=== PATIENT | female | born 1950 | race Caucasian/White ===

== ENCOUNTER 2018-05-04 06:30 | Day surgery (SDC) | payer MEDICARE, OTHER, SELFPAY ==
[2018-04-25 15:00] VITALS: BMI 30.9
[2018-05-04] VITALS (9 sets, daily range): BP systolic 124–149; BP diastolic 44–88; PULSE 68–82; RESP 13–15; TEMP 36–36.6; O2SAT 95–98; BMI 31.4
--- NOTE | 2018-05-04 | PATH_ITS ---
[facility] Accession Number: [id number] . 01 Material submitted: . HEMORRHOIDS AT 12 O'CLOCK . 02 Diagnosis: Designated Hemorrhoids at 12 o'clock, Biopsy: Ulcerated anorectal mucosa with features of mucosal prolapse and vascular submucosal hemorrhoidal tissue. Negative for dysplasia and malignancy. MRV/05/06/2018 . 02 Electronically signed: . Crystal Ingram MD, Pathologist NPI- [id number] . 01 Gross description: . Received in formalin, labeled hemorrhoids at 6 o'clock, is a piece of moralez-white and red-brown bulging skin (1.9 x 1.7 x 1.0 cm). The resection margin is inked black. Tool [employer] serial sections submitted in cassette A1. Note: The site is confirmed to be 12 o'clock. ([id number]) /MRV . 02 Pathologist provided ICD-10: K64.9, K63.89 . 02 CPT . 640001 Performed at: 01 [facility] [address] [id number] MD Miguel Connolly MD Phone: [phone] Performed at: 02 [facility] [address] [place], [place] [id number] MD Crystal Ingram MD Phone: [phone]
[2018-05-04] MEDS: LACTATED RINGERS 1,000 ML 42 ML IV (07:37)
--- NOTE | 2018-05-04 08:22 | PM.HP.1 ---
History of Present Illness Date Patient Seen: 05/04/18 Time Patient Seen: 08:22 Chief complaint: [id number] Narrative: Wonderful 67 year lady who presents for hemorrhoidectomy. She denies any new problems or symptoms since I last saw her in the office. Patient History Medical History Anemia (Acute) Arthritis (Acute) Depression (Acute) Easy bruisability (Acute) GERD (gastroesophageal reflux disease) (Acute) History of blood clots (Acute) Migraines (Acute) Pain (Acute) Pneumonia (Acute) UTI (urinary tract infection) (Acute) H/O: hysterectomy (Resolved) Surgical History History of carpal tunnel release (Acute 01/18/14) History of colonoscopy (Acute) Hx of cholecystectomy (Acute ~1986) Hx of oophorectomy (Acute ~1979) S/P tonsillectomy and adenoidectomy (Acute ~1962) S/P trigger finger release (Acute 05/07/16) H/O bilateral breast reduction surgery (Resolved) History of tonsillectomy (Resolved) Family History Mother Hypertension Heart disease Stroke Father Hypertension Social History marital status: household members: spouse Smoking Status: Former smoker alcohol intake: current substance use type: does not use Family & Social History Family History Mother Hypertension Heart disease Stroke Father Hypertension Social History: household members spouse Tobacco & Substance use: Tobacco type cigarettes Smoking Status Former smoker alcohol intake current alcohol intake frequency 0-2 drinks per day Substance Use Type marijuana Meds Home Medications Medication Instructions Recorded Confirmed Type biotin 1 mg capsule 1 mg PO DAILY 03/17/18 05/04/18 History calcium-vitamin D3-vitamin K 500 1 tab PO BID tab 03/17/18 05/04/18 History mg-500 unit-40 mcg chewable tablet multivitamin tablet 1 tab PO BID tab 03/17/18 05/04/18 History omega-3 fatty acids 1,000 mg 1,000 mg PO DAILY 03/17/18 05/04/18 History capsule pantoprazole 40 mg tablet,delayed 40 mg PO DAILY 03/17/18 05/04/18 History release paroxetine 20 mg tablet 20 mg PO DAILY 03/17/18 05/04/18 History red yeast rice 600 mg capsule 1,200 mg PO DAILY 03/17/18 05/04/18 History Allergies Allergy/AdvReac Type Severity Reaction Status Date / Time Penicillins Allergy Mild RASH Verified 05/04/18 07:07 Review of Systems Review of Systems All systems reviewed & are unremarkable except as noted in HPI and below Exam Vital Signs (past 8 hours): - 05/04/18 07:19 Temperature 97.8 F Pulse Rate 70 Respiratory Rate 15 Blood Pressure 128/83 Pulse Oximetry 98 Oxygen Delivery Method Room Air Narrative Exam Narrative: Very pleasant lady in no obvious distress HEENT: Normocephalic and atraumatic, pupils equal round reactive to light accommodation with anicteric sclera Lungs: Clear to auscultation bilaterally Heart: Regular rate and rhythm without murmur rub or gallop Abdomen: Soft, nontender, active bowel sounds Rectal: Large prolapsing hemorrhoid with excoriation of the mucosa at 12:00 p.m.. Two areas of enlarged hemorrhoids at 5:00 a.m. and 7:00 a.m. respectively. Extremities: Warm well perfused Assessment & Plan Plan: Assessment/Plan Narrative: Very pleasant lady with a troublesome grade 4 hemorrhoid. We discussed risks benefits of hemorrhoidectomy and examination under anesthesia and the patient expressed desire to complete the procedure today.
--- NOTE | 2018-05-04 08:34 | SUR.OPER ---
Lithotomy on padded OR bed, head on pillow, arms secured on padded arm boards at <90 degrees abduction. Legs secured in padded yellow fins stirrups.
[2018-05-04] MEDS: LIDOCAINE 1% W/EPI INJ 20 ML INJ (08:37)
[2018-05-04] MEDS: BUPIVACAINE 0.5% (PF) VIAL 30 ML INJ (08:38)
[2018-05-04] MEDS: DIBUCAINE 1% OINT 28 GM 1 APPLIC TOP (08:44)
--- NOTE | 2018-05-04 09:03 | PM.OP.1 ---
Operative Date/Time/Diagnoses Date of procedure: 05/04/18 Time of procedure: 09:03 Pre-op diagnosis: Grade 4 internal hemorrhoids Post-op diagnosis: same Procedure & Clinicians Procedure: Examination under anesthesia with open hemorrhoidectomy at 12:00 p.m. and hemorrhoid banding at 4 and 7:00 a.m. Same procedure as scheduled: Yes Indications: Grade 4 hemorrhoids Surgeon: Carmela Holt Anesthesia Type: General (Dr. Franz) Operative Notes Findings: 1. Grade 4 hemorrhoid at 12:00 p.m. 2. Grade 2-3 internal hemorrhoids at 4 and 7:00 a.m. respectively Closure Type: primary Estimated Blood Loss (mL): 5 Procedure in detail: After obtaining informed consent, the patient was brought to the operating room and placed in the supine position on the operating table. Following successful induction of general endotracheal anesthesia, appropriate padding of all bony prominences, and placement of appropriate monitors, the patient's legs were placed in Khalif stirrups and the perineum and perianal region prepped and draped in the standard surgical fashion. A timeout was held per SCOAP protocol. Following infiltration with local anesthetic to create a field block, a retractor was placed in the anal canal. An internal/external hemorrhoid complex was seen at 12:00 prolapsing out into the anal canal and involving the perineal body with a large skin tag. A 2-0 chromic suture was placed at the apex of the seminal complex. The mucosa was opened and the underlying vein was carefully dissected from the external sphincter. The vein was liberated at the apex and passed from the table as a specimen. The remaining mucosa and anoderm was closed with a running locking chromic suture. After the grade 4 hemorrhoid had been removed, we were able to get a better evaluation of the remaining hemorrhoid groupings. At 5:00 a.m. and 7:00 a.m. respectively, there were 2 grade 2-3 groupings of internal hemorrhoids. We elected to band these. Each grouping was grasped and 2 bands deployed at the base of each segment. The anal canal was checked for hemostasis. It was irrigated with warm water. The anal canal itself was packed with Gelfoam and lidocaine ointment. All sponge, needle, and instrument counts were correct at the conclusion of the case. The patient was allowed to awaken from anesthesia without difficulty and taken to the post-anesthesia care unit in good condition. Complications: none Condition: stable Disposition: PACU Plan for aftercare: 1. Discharge home 2. Follow up with me in my office in 2 weeks
--- NOTE | 2018-05-04 09:47 | SUR.PHASEII ---
PT SITTING UP IN BED AND DRINKING JUICE. PT AT BEDSIDE. PT DENIES ANY PAIN/DISCOMFORT OR NAUSEA AT THIS TIME. REVIEWED DC INSTRUCTIONS WITH PT AND PT . PT PROVIDED WITH SITZ BATH AND WATER BOTTLE FOR CARE AT HOME. PT OBSERVED TO HAVE RED AREA ON LEFT INNER EYEBALL. PT STATES SHE IS ABLE TO SEE OUT OF BOTH EYES AND IS DENYING ANY PAIN AT THIS TIME IN HER EYES. WILL NOTIFY MD/ANESTHESIA. BED IN LOWEST POSITION AND CALL LIGHT GIVEN TO PT. PT APPEARS COMFORTABLE AT THIS TIME.
--- NOTE | 2018-05-04 10:46 | SUR.PHASEII ---
MD PIZARRO AND ANESTHESIA ALEXANDRA ASSESSED PT LEFT EYE. PER BOTH DOCTORS, OK FOR PT TO BE DISCHARGED HOME AT THIS TIME. ANESTHESIA ADVISED PT TO USE VISINE IN LEFT EYE IF ITS NEEDED. PT VOICED UNDERSTANDING. PT STATED NO PAIN IN EYE AND NO CHANGE IN VISION IN EYE.
== END 2018-05-04 10:54 | disposition home or self-care (01) ==
PROVIDERS: Family Provider Family Medicine; PCP Family Medicine; Visit Provider Surgery
PROC: (CPT 46260; principal; 2018-05-04 07:45)
DX: K64.3 Fourth degree hemorrhoids (principal); K64.2 Third degree hemorrhoids; D64.9 Anemia, unspecified; Z87.891 Personal history of nicotine dependence; K64.4 Residual hemorrhoidal skin tags
CPT/HCPCS: 46260; 88304; J1100; J2405; J2704; J3010

== ENCOUNTER → 2019-08-31 14:02 | Outpatient (CLI) | payer MEDICARE, OTHER, SELFPAY ==
--- NOTE | 2019-08-31 | DI.MG.S_ITS ---
BILATERAL DIGITAL SCREENING MAMMOGRAM 3D/2D WITH CAD: 08/31/2019 CLINICAL: Routine screening. Comparison is made to exams dated: 08/09/2018 mammogram, 06/04/2016 mammogram, and 05/10/2015 mammogram - [facility]. There are scattered fibroglandular elements in both breasts. Current study was also evaluated with a Computer Aided Detection (CAD) system. No significant masses, calcifications, or other findings are seen in either breast. There has been no significant interval change. IMPRESSION: NEGATIVE There is no mammographic evidence of malignancy. A 1 year screening mammogram is recommended. This exam was interpreted at Station ID: [id number]. NOTE: For mammograms, a report in lay terms will be sent to the patient. Approximately 15% of breast malignancies will not be visualized mammographically. In the management of a palpable breast mass, a negative mammogram must not discourage biopsy of a clinically suspicious lesion. Electronically Signed By: Humble kitchen/jemima:08/31/2019 14:38:44 letter sent: Normal Exam ACR BI-RADS Category 1: Negative 3341F
== END ==
PROVIDERS: Family Provider Family Medicine; PCP Physician Assistant; Referring Provider Physician Assistant; Visit Provider Physician Assistant
DX: Z12.31 Encounter for screening mammogram for malignant neoplasm of breast (principal)
CPT/HCPCS: 77063; 77067

== ENCOUNTER → 2019-09-04 13:55 | Outpatient (CLI) | payer MEDICARE, OTHER, SELFPAY | PROVIDERS: Family Provider Family Medicine; PCP Physician Assistant; Referring Provider Physician Assistant; Visit Provider Physician Assistant | DX: M85.88 Other specified disorders of bone density and structure, other site (principal); Z78.0 Asymptomatic menopausal state; Z90.722 Acquired absence of ovaries, bilateral; Z82.62 Family history of osteoporosis; Z87.891 Personal history of nicotine dependence | CPT/HCPCS: 77080 ==

== ENCOUNTER → 2020-08-31 11:01 | Outpatient (CLI) | payer MEDICARE, OTHER, SELFPAY ==
--- NOTE | 2020-08-31 11:02 | DI.MG.S_ITS ---
BILATERAL DIGITAL SCREENING MAMMOGRAM 3D/2D WITH CAD: 08/31/2020 CLINICAL: Routine screening. Comparison is made to exams dated: 08/31/2019 mammogram - [facility], 08/09/2018 mammogram, and 06/04/2016 mammogram - [facility]. The tissue of both breasts is predominantly fatty. Current study was also evaluated with a Computer Aided Detection (CAD) system. No significant masses, calcifications, or other findings are seen in either breast. There has been no significant interval change. IMPRESSION: NEGATIVE There is no mammographic evidence of malignancy. A 1 year screening mammogram is recommended. This exam was interpreted at Station ID: [id number]. NOTE: For mammograms, a report in lay terms will be sent to the patient. Approximately 15% of breast malignancies will not be visualized mammographically. In the management of a palpable breast mass, a negative mammogram must not discourage biopsy of a clinically suspicious lesion. Electronically Signed By: Carlos ibanez/jeimma:09/03/2020 08:03:23 letter sent: Normal Exam ACR BI-RADS Category 1: Negative 3341F
== END ==
PROVIDERS: Family Provider Family Medicine; PCP Physician Assistant; Referring Provider Physician Assistant; Visit Provider Physician Assistant
DX: Z12.31 Encounter for screening mammogram for malignant neoplasm of breast (principal)
CPT/HCPCS: 77063; 77067

== ENCOUNTER → 2020-10-31 11:08 | Outpatient (CLI) | payer MEDICARE, OTHER, SELFPAY | PROVIDERS: Family Provider Family Medicine; PCP Physician Assistant; Referring Provider Internal Medicine; Visit Provider Internal Medicine | DX: Z13.820 Encounter for screening for osteoporosis; Z78.0 Asymptomatic menopausal state; M85.88 Other specified disorders of bone density and structure, other site; Z90.722 Acquired absence of ovaries, bilateral; Z87.891 Personal history of nicotine dependence; Z82.62 Family history of osteoporosis | CPT/HCPCS: 77080 ==

== ENCOUNTER → 2021-09-02 10:23 | Outpatient (CLI) | payer MEDICARE, OTHER, SELFPAY ==
--- NOTE | 2021-09-02 | DI.MG.S_ITS ---
BILATERAL DIGITAL SCREENING MAMMOGRAM 3D/2D WITH CAD: 09/02/2021 CLINICAL: Routine screening. Family history of breast cancer. Comparison is made to exams dated: 08/31/2020 mammogram, 08/31/2019 mammogram - [facility], and 08/09/2018 mammogram - [facility]. The tissue of both breasts is predominantly fatty. Current study was also evaluated with a Computer Aided Detection (CAD) system. No significant masses, calcifications, or other findings are seen in either breast. There has been no significant interval change. IMPRESSION: NEGATIVE There is no mammographic evidence of malignancy. A 1 year screening mammogram is recommended. This exam was interpreted at Station ID: [id number]. NOTE: For mammograms, a report in lay terms will be sent to the patient. Approximately 15% of breast malignancies will not be visualized mammographically. In the management of a palpable breast mass, a negative mammogram must not discourage biopsy of a clinically suspicious lesion. Electronically Signed By: Sergio allen/jemima:09/02/2021 10:48:18 letter sent: Normal Exam ACR BI-RADS Category 1: Negative 3341F
== END ==
PROVIDERS: Family Provider Family Medicine; PCP Physician Assistant; Referring Provider Physician Assistant; Visit Provider Physician Assistant
DX: Z12.31 Encounter for screening mammogram for malignant neoplasm of breast (principal); Z80.3 Family history of malignant neoplasm of breast
CPT/HCPCS: 77063; 77067

== ENCOUNTER → 2022-09-08 15:13 | Outpatient (CLI) | payer MEDICARE, OTHER, SELFPAY ==
--- NOTE | 2022-09-08 15:14 | DI.MG.S_ITS ---
BILATERAL DIGITAL SCREENING MAMMOGRAM 3D/2D WITH CAD: 09/08/2022 CLINICAL: Routine screening. Family history of breast cancer. Comparison is made to exams dated: 09/02/2021 mammogram, 08/31/2020 mammogram, and 08/31/2019 mammogram - [facility]. Both breasts are almost entirely fatty (category a/<25% glandular tissue). Current study was also evaluated with a Computer Aided Detection (CAD) system. No significant masses, calcifications, or other findings are seen in either breast. There has been no significant interval change. IMPRESSION: NEGATIVE There is no mammographic evidence of malignancy. A 1 year screening mammogram is recommended. Based on the Tyrer Cuzick model (a risk assessment model) the patient's lifetime risk is 6.7% and her 10 year risk is 4.3%. According to the ACR, ACS, and NCCN guidelines, an annual breast MRI exam along with mammogram is recommended if the patient's lifetime risk is 20% or greater. This exam was interpreted at Station ID: [id number]. NOTE: For mammograms, a report in lay terms will be sent to the patient. Approximately 15% of breast malignancies will not be visualized mammographically. In the management of a palpable breast mass, a negative mammogram must not discourage biopsy of a clinically suspicious lesion. Electronically Signed By: Art tapia/jemima:09/09/2022 07:58:18 letter sent: Normal Exam ACR BI-RADS Category 1: Negative 3341F
== END ==
PROVIDERS: Family Provider Family Medicine; PCP Family Medicine; Referring Provider Family Medicine; Visit Provider Family Medicine
DX: Z12.31 Encounter for screening mammogram for malignant neoplasm of breast (principal); Z80.3 Family history of malignant neoplasm of breast
CPT/HCPCS: 77063; 77067

== ENCOUNTER → 2022-12-15 08:03 | Outpatient (CLI) | payer MEDICARE, OTHER, SELFPAY ==
[2022-12-15 09:09] LABS: Alanine Aminotransferase 29 IU/L (<35); Albumin 4.3 g/dL (3.5-5.0); Albumin Globulin Ratio 1.6 (1.0-2.8); Alkaline Phosphatase 60 U/L (38-126); Aspartate Aminotransferase 31 IU/L (14-36); BUN Creatinine Ratio 18.8 (6-22); Bilirubin Total 0.2 mg/dL (0.2-1.3); Blood Urea Nitrogen 15 mg/dL (7-17); Carbon Dioxide 29 mmol/L (22-32); Chloride 103 mmol/L (98-107); Cholesterol 226 mg/dL (140-199); Estimated Glomerular Filt Rate > 60 mL/min (>60); Globulin 2.7 g/dL (1.7-4.1); Glucose 91 mg/dL (80-110); HDL Cholesterol 91 mg/dL (40-60); HEMOLYSIS < 15 (0-50); LDL Cholesterol Calculated 109 mg/dL (<100); Potassium 4.5 mmol/L (3.4-5.1); Sodium 140 mmol/L (137-145); Triglycerides 130 mg/dL (35-150)
[2022-12-15 09:50] LABS: Hep C Virus Ab w/Reflex Quant NEGATIVE s/c (NEGATIVE)
== END ==
PROVIDERS: Family Provider Family Medicine; PCP Family Medicine; Referring Provider Family Medicine; Visit Provider Family Medicine
DX: I10 Essential (primary) hypertension (principal); Z00.00 Encounter for general adult medical examination without abnormal findings; Z11.59 Encounter for screening for other viral diseases
CPT/HCPCS: 36415; 80053; 80061; 86803

== ENCOUNTER → 2023-01-04 14:29 | Outpatient (CLI) | payer MEDICARE, OTHER, SELFPAY ==
[2023-01-04 16:00] LABS: Add Manual Diff / Slide Review NO; Basophils Absolute Auto 100 /uL (0-100); Basophils Percent Auto 0.8 % (0-2); Eosinophils Absolute Auto 200 /uL (0-450); Eosinophils Percent Auto 3.2 % (2-4); Hematocrit 34.5 % (36-46); Hemoglobin 11.1 g/dL (12.0-16.0); Lymphocytes Absolute Auto 1900 /uL (1100-4500); Lymphocytes Percent Auto 26.1 % (25-40); Mean Corpuscular HGB Conc 32.1 % (30-36); Mean Corpuscular Hemoglobin 26.7 PG (26-34); Mean Corpuscular Volume 83.2 fL (80-100); Monocytes Absolute Auto 600 /uL (0-900); Monocytes Percent Auto 7.9 % (3-14); Neutrophils Absolute Auto 4500 /uL (1500-7000); Platelet Count 256 X10^3/uL (150-400); Red Blood Cell Count 4.14 X10^6/uL (4.0-5.2); Red Cell Distribution Width 21.1 % (11.6-14.8); White Blood Cell Count 7.2 X10^3/uL (4.5-11.0)
[2023-01-04 16:13] LABS: Anisocytosis 1+
[2023-01-05 10:36] LABS: Fecal Immunochemical Test Negative (Negative)
== END ==
PROVIDERS: Family Provider Family Medicine; PCP Family Medicine; Referring Provider Family Medicine; Visit Provider Family Medicine
DX: D64.9 Anemia, unspecified (principal); Z12.11 Encounter for screening for malignant neoplasm of colon
CPT/HCPCS: 36415; 82274; 85025

== ENCOUNTER 2023-03-30 11:09 | Emergency (ER) | payer MEDICARE, OTHER, SELFPAY ==
[2023-03-30] VITALS (9 sets, daily range): BP systolic 118–151; BP diastolic 73–95; PULSE 86–109; RESP 10–28; TEMP 36.9–37; O2SAT 95–100; BMI 30.7
--- NOTE | 2023-03-30 11:21 | DI.RAD.S_ITS ---
PROCEDURE: XR CHEST 1V INDICATIONS: chest pain TECHNIQUE: One view of the chest was acquired. COMPARISON: [facility], , CHEST 2 VIEW, 05/21/2014, 9:13. FINDINGS: Surgical changes and devices: None. Lungs and pleura: Lungs are clear. No pleural effusions or pneumothorax. Mediastinum: Mediastinal contours appear normal. Heart size is normal. Bones and chest wall: No suspicious bony lesions. Overlying soft tissues appear unremarkable. IMPRESSION: No acute cardiopulmonary abnormality is seen. Dictated by: Neetu Dougherty M.D. on 03/30/2023 at 12:14 Approved by: Neetu Dougherty M.D. on 03/30/2023 at 12:14
[2023-03-30 11:48] LABS: INR 0.9 (0.9-1.3); Prothrombin Time 10.7 SECONDS (9.4-12.5)
[2023-03-30 11:51] LABS: PTT Partial Thromboplastin Tim 27 SECONDS (25.1-36.5)
[2023-03-30 11:52] LABS: Add Manual Diff / Slide Review NO; Basophils Absolute Auto 100 /uL (0-100); Basophils Percent Auto 1.2 % (0-2); Eosinophils Absolute Auto 300 /uL (0-450); Eosinophils Percent Auto 4.3 % (2-4); Hemoglobin 11.6 g/dL (12.0-16.0); Lymphocytes Absolute Auto 1800 /uL (1100-4500); Mean Corpuscular HGB Conc 33.1 % (30-36); Mean Corpuscular Volume 90.6 fL (80-100); Monocytes Absolute Auto 600 /uL (0-900); Neutrophils Absolute Auto 3100 /uL (1500-7000); Neutrophils Percent Auto 53.5 % (50-75); Platelet Count 257 X10^3/uL (150-400); Red Blood Cell Count 3.87 X10^6/uL (4.0-5.2); Red Cell Distribution Width 19.2 % (11.6-14.8); White Blood Cell Count 5.8 X10^3/uL (4.5-11.0)
[2023-03-30 12:00] LABS: Alanine Aminotransferase 31 IU/L (<35); Albumin 4.3 g/dL (3.5-5.0); Albumin Globulin Ratio 1.4 (1.0-2.8); Alkaline Phosphatase 61 U/L (38-126); Aspartate Aminotransferase 35 IU/L (14-36); BUN Creatinine Ratio 19.2 (6-22); Bilirubin Total 0.8 mg/dL (0.2-1.3); Blood Urea Nitrogen 15 mg/dL (7-17); Calcium 9.6 mg/dL (8.4-10.2); Carbon Dioxide 28 mmol/L (22-32); Chloride 104 mmol/L (98-107); Creatine Kinase 73 U/L (30-135); Estimated Glomerular Filt Rate > 60 mL/min (>60); Glucose 89 mg/dL (80-110); HEMOLYSIS < 15 (0-50); Lipase 128 U/L (23-300); Sodium 139 mmol/L (137-145); Total Protein 7.3 g/dL (6.3-8.2)
[2023-03-30 12:09] LABS: Troponin I < 0.012 ng/mL (0.01-0.034)
[2023-03-30] MEDS: ASPIRIN 81 MG CHEW TAB 324 MG PO (12:16)
--- NOTE | 2023-03-30 14:47 | ED.CHESTPAIN ---
HPI - Chest Pain General Chief Complaint: Chest Pain Stated Complaint: L side chest pain Time Seen by Provider: 03/30/23 14:46 Source: patient Mode of arrival: Ambulatory Limitations: no limitations History of Present Illness HPI narrative: Patient is a 72-year-old female with history of hypertension presenting today with left-sided chest pain. She reports that she her COVID and flu vaccine 6 days ago 2 days later she kind of slipped but did not really fall or land on her chest. Since then she has had left anterior chest pain. She says it is progressively getting worse. It hurts every time she moves breathes coughs or sneezes. She is taken some Tylenol ibuprofen for it without significant relief. She denies any shortness of breaths. Related Data Home Medications Medication Instructions Recorded Confirmed biotin 1 mg capsule 1 mg PO DAILY 03/17/18 12/14/22 calcium-vitamin D3-vitamin K 500 1 tab PO BID 03/17/18 12/14/22 mg-500 unit-40 mcg chewable tablet (Viactiv) omega-3 fatty acids 1,000 mg 1,000 mg PO DAILY 03/17/18 12/14/22 capsule (Fish Oil Concentrate) red yeast rice 600 mg capsule 1,200 mg PO DAILY 03/17/18 12/14/22 cetirizine 10 mg capsule (Zyrtec) 10 mg PO DAILY PRN 04/22/22 12/14/22 clobetasol 0.05 % topical cream 1 applic topical DAILY 04/22/22 12/14/22 fluticasone propionate 50 1 spray intranasal DAILY 04/22/22 12/14/22 mcg/actuation nasal spray,suspension (Flonase Allergy Relief) psyllium 1 tbsp PO DAILY 04/22/22 12/14/22 vit C 250 mg-vit E 200 unit-zinc cap PO 04/22/22 12/14/22 ox 12.5 [id number] capsule (ICaps AREDS2) Previous Rx's Medication Instructions Recorded losartan 25 mg tablet 25 mg PO DAILY #90 tabs 12/14/22 paroxetine HCl 20 mg tablet (Paxil) 20 mg PO DAILY #90 tabs 12/14/22 pantoprazole 40 mg tablet,delayed 40 mg PO DAILY #90 tabs 02/01/23 release hydrocodone 5 mg-acetaminophen 325 1 tab PO Q6H PRN pain #10 tabs 03/30/23 mg tablet Allergies Allergy/AdvReac Type Severity Reaction Status Date / Time ciprofloxacin [From Cipro] Allergy Mild Urticaria Verified 03/30/23 11:10 Penicillins Allergy Mild RASH Verified 03/30/23 11:10 Patient History Medical History Encounter for initial annual wellness visit (AWV) in Medicare patient Benign essential HTN Rosacea Allergies PTSD (post-traumatic stress disorder) Anxiety Osteopenia Foot pain Chronic back pain Carpal tunnel syndrome Ankle pain Measles Chicken pox Vertigo Cataracts, bilateral Ovarian cyst (~1979) Fibroids (~2011) Hemorrhoid (~2018) Colitis (~1974) Easy bruisability Anemia Depression Migraines UTI (urinary tract infection) GERD (gastroesophageal reflux disease) (~1974) Pain Arthritis Pneumonia History of blood clots Surgical History Anesthesia History of hemorrhoidectomy (~04/2018) History of colonoscopy Hx of oophorectomy (~1979) S/P trigger finger release (05/07/16) History of carpal tunnel release (01/18/14) Hx of cholecystectomy (~1986) S/P tonsillectomy and adenoidectomy (~1962) History of tonsillectomy (~1962) H/O bilateral breast reduction surgery (~2004) H/O: hysterectomy (~11/2012) Family History Mother Hypertension Heart disease Stroke Congestive heart failure Osteoporosis Father Hypertension Cancer Brother Hyperlipidemia Brother Hyperlipidemia Sister Hyperlipidemia Stroke Sister Stroke Social History marital status: household members: spouse Smoking Status: Former smoker alcohol intake: current substance use type: does not use Smoking Status: Former smoker alcohol intake frequency: 0-2 drinks per day Substance Use Type: marijuana Exam Initial Vital Signs Initial Vital Signs: Vital Signs Temperature 98.4 F 03/30/23 11:12 Pulse Rate 86 03/30/23 11:12 Respiratory Rate 18 03/30/23 11:12 Blood Pressure 135/73 03/30/23 11:12 Pulse Oximetry 100 03/30/23 11:12 Oxygen Delivery Method Room Air 03/30/23 11:12 GENERAL: Alert pleasant well-appearing 72 year female and in no acute distress. HEENT: Head atraumatic,EOMI, pupils reactive, face symmetric, moist mucous membranes CARDIOVASCULAR: Regular rate and rhythm without murmurs, rubs or gallops. Left anterior chest reproducible to palpation. No contusion erythema or sign of trauma RESPIRATORY: Breath sounds equal bilaterally, no wheezes rales or rhonchi. ABDOMEN: Soft, nontender. Normoactive bowel sounds all 4 quadrants. No guarding or rebound.ss EXTREMITIES: Normal range of motion, no clubbing or edema. Neurovascularly intact NEUROLOGICAL: Alert and oriented x4.Normal gait and speech. Cranial nerves II through XII grossly intact. SKIN: Warm, dry, no laceration, no petechiae, no rashes or lesions. Scores HEART Score Heart Score history: Slightly Suspicious Heart Score EKG: Normal Heart Score Age: > or = 65 years old Heart Score risk factors: 1-2 risk factors Heart Score troponin: < or = to normal limit Heart Score Total: 3 Course Orders Ordered: Discontinued Medications Aspirin (Aspirin 81 Mg Chew Tab) 324 mg PO NOW ONE Stop: 03/30/23 11:22 Last Admin: 03/30/23 12:16 Dose: 324 mg Documented By: PAOLA Ketorolac Tromethamine (Ketorolac 30 Mg/Ml Vial) 15 mg IV NOW ONE Stop: 03/30/23 15:18 Last Admin: 03/30/23 15:23 Dose: 15 mg Documented By: KB Vital Signs Vital signs: Vital Signs - 8 hr 03/30/23 11:12 03/30/23 12:19 03/30/23 12:20 Temperature 98.4 F Pulse Rate 86 108 H Respiratory Rate 18 26 H Blood Pressure 135/73 136/82 Pulse Oximetry 100 99 Oxygen Delivery Method Room Air 03/30/23 12:20 03/30/23 12:30 03/30/23 12:30 Temperature Pulse Rate 109 H 104 H Respiratory Rate 28 H 10 L Blood Pressure 118/81 Pulse Oximetry 99 97 Oxygen Delivery Method 03/30/23 13:00 03/30/23 13:00 03/30/23 13:30 Temperature Pulse Rate 104 H Respiratory Rate 23 Blood Pressure 142/87 H 139/91 H Pulse Oximetry 97 Oxygen Delivery Method 03/30/23 13:30 03/30/23 14:00 03/30/23 14:00 Temperature Pulse Rate 103 H 101 H Respiratory Rate 11 L 23 Blood Pressure 133/89 Pulse Oximetry 97 97 Oxygen Delivery Method Room Air Room Air MDM - Chest Pain Lab Data 03/30/23 11:25 03/30/23 11:25 Labs: Lab Results 03/30/23 03/30/23 Range/Units 11:25 14:40 WBC 5.8 (4.5-11.0) X10^3/uL RBC 3.87 L (4.0-5.2) X10^6/uL Hgb 11.6 L (12.0-16.0) g/dL Hct 35.0 L (36-46) % MCV 90.6 (80-100) fL MCH 30.0 (26-34) PG MCHC 33.1 (30-36) % RDW 19.2 H (11.6-14.8) % Plt Count 257 (150-400) X10^3/uL Neut % (Auto) 53.5 (50-75) % Lymph % (Auto) 31.0 (25-40) % [place] % (Auto) 10.0 (3-14) % Eos % (Auto) 4.3 H (2-4) % Baso % (Auto) 1.2 (0-2) % Neut # (Auto) 3100 (1165-5019) /uL Lymph # (Auto) 1800 (2296-4578) /uL [place] # (Auto) 600 (0-900) /uL Eos # (Auto) 300 (0-450) /uL Baso # (Auto) 100 (0-100) /uL PT 10.7 (9.4-12.5) SECONDS INR 0.9 (0.9-1.3) APTT 27 (25.1-36.5) SECONDS Sodium 139 (137-145) mmol/L Potassium 4.0 (3.4-5.1) mmol/L Chloride 104 (98-107) mmol/L Carbon Dioxide 28 (22-32) mmol/L BUN 15 (7-17) mg/dL Creatinine 0.78 (0.52-1.04) mg/dL Estimated GFR > 60 (>60) mL/min BUN/Creatinine Ratio 19.2 (6-22) Glucose 89 (80-110) mg/dL Calcium 9.6 (8.4-10.2) mg/dL Magnesium 2.0 (1.6-2.3) mg/dL Total Bilirubin 0.8 (0.2-1.3) mg/dL AST 35 (14-36) IU/L ALT 31 (<35) IU/L Alkaline Phosphatase 61 (38-126) U/L Total Creatine Kinase 73 (30-135) U/L Troponin I < 0.012 < 0.012 (0.01-0.034) ng/mL Total Protein 7.3 (6.3-8.2) g/dL Albumin 4.3 (3.5-5.0) g/dL Globulin 3.0 (1.7-4.1) g/dL Albumin/Globulin Ratio 1.4 (1.0-2.8) Lipase 128 (23-300) U/L Urine Dip Bedside Urine Glucose Negative Bedside Urine Bilirubin - Negative Bedside Urine Ketone - Negative Urine Specific [place] 1.010 Bedside Urine Occult Blood - Negative Bedside Urine pH 6.0 Bedside Urine Protein - Negative Bedside Urine Urobilinogen - Negative Bedside Urine Nitrite - Negative Bedside Urine Leukocytes - Negative Esterase Imaging Data Chest x-ray: Radiologist's Impression: PROCEDURE: XR CHEST 1V INDICATIONS: chest pain TECHNIQUE: One view of the chest was acquired. COMPARISON: [facility], , CHEST 2 VIEW, 05/21/2014, 9:13. FINDINGS: Surgical changes and devices: None. Lungs and pleura: Lungs are clear. No pleural effusions or pneumothorax. Mediastinum: Mediastinal contours appear normal. Heart size is normal. Bones and chest wall: No suspicious bony lesions. Overlying soft tissues appear unremarkable. IMPRESSION: No acute cardiopulmonary abnormality is seen. Dictated by: Neetu Dougherty M.D. on 03/30/2023 at 12:14 Approved by: Neetu Dougherty M.D. on 03/30/2023 at 12:14 ECG Data Interpretation: Normal sinus rhythm rate 87 ND interval 138 QRS [address] changes inversions MDM Narrative Medical decision making narrative: Patient is a 72-year-old female presents today with left-sided chest pain. It started after a small slip but she did not fall. It is definitely reproducible with palpation worse with any type of movement and constant for the last 5 days. EKG has been reviewed without any ischemic changes Chest x-ray has been reviewed without any abnormality Blood work has been reviewed with 2- troponins and no clinical significant abnormalities Patient chest pain is likely a costochondritis musculoskeletal type pain. Unlikely to be acute coronary syndrome. Heart score is 3 Discharge Plan Departure Patient Disposition: Home Clinical Impression: Acute costochondritis Instructions: Costochondritis Activity Restrictions/Additional Instructions: *You have been diagnosed with costochondritis *What to do: At this time this is likely sprained rib. Supportive care only. May try ice or heat. This will take time it can take up to 4 weeks to heal. *Continue to take medications as directed --> [facility] Motrin 600 mg every 8 hours 1-2 weeks [place] 1 tablet every 6 hours at nighttime if needed to help with sleep or severe pain *Follow up with your primary care provider in 2-3 days or call [phone] *Return to ER if you should have increasing pain shortness of breath numbness tingling weakness or any new, worsening or concerning symptoms CONTROLLED SUBSTANCE DISCHARGE (Narcotoic/benzodiazepine/Flexeril/Phenergan) 1. You have been prescribed narcotic medications, it does have acetaminophen/Tylenol/paracetamol in it, DO NOT TAKE MORE THAN 4,00mg in 24 hours of Tylenol. TRAMADOL DOES NOT CONTAIN TYLENOL 2. Please understand that we cannot provide further refills of narcotics, benzodiazepines or controlled substances through the ED and her pain management will need to be through your provider. 3. While on these medications you cannot drive or operate heavy machinery. 4. You cannot sign legal documents or perform any duties such as this. 5. As long as you're taking opiate pain medications he should also be taking a stool softener such as Colace, Dulcolax, MiraLAX or prune juice, to help avoid constipation. Prescriptions: New hydrocodone-acetaminophen 5-325 mg tablet 1 tab PO Q6H PRN (Reason: pain) Qty: 10 0RF No Action pantoprazole 40 mg tablet,delayed release (DR/EC) 40 mg PO DAILY Qty: 90 3RF Zyrtec 10 mg capsule 10 mg PO DAILY PRN ICaps AREDS2 250 mg-200 unit -12.5 mg-1 mg capsule PO fluticasone propionate [Flonase Allergy Relief] 50 mcg/actuation spray,suspension 1 spray intranasal DAILY Rx Instructions: administer into each nostril clobetasol 0.05 % cream 1 applic topical DAILY psyllium Powder 1 tbsp PO DAILY Rx Instructions: mix into at least 8 oz of water or juice before administering losartan 25 mg tablet 25 mg PO DAILY Qty: 90 3RF paroxetine HCl [Paxil] 20 mg tablet 20 mg PO DAILY Qty: 90 3RF calcium-vitamin D3-vitamin K [Viactiv] 500-500-40 mg-unit-mcg tablet,chewable 1 tab PO BID omega-3 fatty acids [Fish Oil Concentrate] 1,000 mg capsule 1,000 mg PO DAILY red yeast rice 600 mg capsule 1,200 mg PO DAILY biotin 1 mg capsule 1 mg PO DAILY Referrals: Miracle Turner DO [Primary Care Provider] - Stand Alone Forms: Patient Portal/API
[2023-03-30 15:10] LABS: Troponin I < 0.012 ng/mL (0.01-0.034)
[2023-03-30] MEDS: KETOROLAC 30 MG/ML VIAL 15 MG IV (15:23)
== END 2023-03-30 15:56 | disposition home or self-care (01) ==
PROVIDERS: Emergency Provider Emergency Medicine; Family Provider Family Medicine; PCP Family Medicine
DX: M94.0 Chondrocostal junction syndrome [Tietze] (principal); R07.9 Chest pain, unspecified
CPT/HCPCS: 36415; 71045; 80053; 81003; 82550; 83690; 83735; 84484; 85025; 85610; 85730; 93005; 96374; 99284; J1885

== ENCOUNTER → 2023-04-15 10:38 | Outpatient (CLI) | payer MEDICARE, OTHER, SELFPAY ==
--- NOTE | 2019-04-15 10:59 | DI.DEXA.S_ITS ---
Bone Density Report Name: MOIRA BAEZA Age: 72 Sex: Female Ethnicity: White Date of : 1950 Indication: osteopenia; Referring Provider: BETTIE LOWE Study: Bone densitometry was performed. Exam Date: April 15, 2023 Accession number: [id number] Bone Density: Region BMD T-score Z-score Classification AP Spine(L1-L4) 0.833 -1.9 0.2 Osteopenia Femoral Neck (Left) 0.765 -0.8 1.1 Normal Total Hip (Left) 0.876 -0.5 1.0 Normal Femoral Neck (Right) 0.766 -0.8 1.1 Normal Total Hip (Right) 0.860 -0.7 0.9 Normal Total Hip Mean 0.868 -0.6 1.0 Normal World Health Organization criteria for BMD impression classify patients as: Normal (T-score at or above -1.0), Osteopenia (T-score between -1.0 and -2.5), or Osteoporosis (T-score at or below -2.5). 10-year Fracture Risk(1): Major Osteoporotic Fracture 8.1% Hip Fracture 0.7% Reported Risk Factors: [place] (), Neck BMD=0.765, BMI=32.8 (1) FRAX(R) Version 3.08. Fracture probability calculated for an untreated patient. Fracture probability may be lower if the patient has received treatment. Previous Exams: -- Region Exam Age BMD T-score BMD Change BMD Change Date g/cm2 vs Baseline vs Previous -- AP Spine (L1-L4) 04/15/2023 72 0.833 -1.9 0.035 (4.4%)# 0.017 (2.1%)# 10/31/2020 70 0.817 -2.1 0.018 (2.3%) 0.018 (2.3%) 09/04/2019 69 0.799 -2.3 Total Hip(Left) 04/15/2023 72 0.876 -0.5 -0.012 (-1.3%)# -0.007 (-0.8%)# 10/31/2020 70 0.883 -0.5 -0.005 (-0.5%) -0.005 (-0.5%) 09/04/2019 69 0.887 -0.4 Total Hip(Right) 04/15/2023 72 0.860 -0.7 0.004 (0.5%)# 0.028 (3.4%)# 10/31/2020 70 0.831 -0.9 -0.024 (-2.8%) -0.024 (-2.8%) 09/04/2019 69 0.855 -0.7 -- *Denotes significance at 95% confidence level, LSC for AP Spine = 0.022 g/cm2, LSC for Total Hip = 0.027 g/cm2 # Denotes dissimilar scan types or analysis methods Impression: The patient has low bone mass, based on the Total Spine T-score. The patient has an estimated ten-year risk of hip fracture of 0.7% and an estimated ten-year risk of major fracture of 8.1%, based on the WHO FRAX algorithm. No significant bone loss was observed. Discussion: BONE DENSITY IS LOW AT ONE OR MORE SKELETAL SITES. This patient's lowest T-score is low at one or more skeletal sites. It meets the World Health Organization's (WHO) criteria for ?low bone mass? (T-score between -1.0 and -2.5). The patient's 10-year risk of fracture as calculated by FRAX is less than the threshold where pharmacological therapy is recommended by the National Osteoporosis Foundation (NOF). However, all treatment decisions require clinical judgment and consideration of individual patient factors, including patient preferences, comorbidities, previous drug use, risk factors not captured in the FRAX model (e.g., frailty, falls, vitamin D deficiency, increased bone turnover, interval significant decline in bone density) and possible under or overestimation of fracture risk by FRAX. The patient should follow a healthful lifestyle (good nutrition with adequate calcium and vitamin D, and appropriate weight-bearing exercise). Follow-Up: Consider repeating this study in 2 to 3 years to reassess this patient's status, or sooner if there is some new clinical indication. Reported by: HUGH STEWART M.D. on 04/15/2023 11:30:00 AM.
--- NOTE | 2023-04-15 11:00 | DI.RAD.S_ITS ---
PROCEDURE: XR DEXA AXIAL SKELETON INDICATIONS: screening COMPARISON: [facility], CR, XR DEXA AXIAL SKELETON, 10/31/2020, 11:33. [facility], CR, XR DEXA AXIAL SKELETON, 09/04/2019, 14:22. FINDINGS: This blank DEXA report has been sent in error by the PACS system. The correct and complete report will be forthcoming in 1-2 days. Thank you for your patience and understanding. Dictated by: Osmany Maier M.D. on 04/16/2023 at 9:21 Approved by: Osmany Maier M.D. on 04/16/2023 at 9:28
== END ==
LOC: RAD 10:39
PROVIDERS: Family Provider Family Medicine; PCP Family Medicine; Referring Provider Family Medicine; Visit Provider Family Medicine
DX: Z13.820 Encounter for screening for osteoporosis (principal); M85.88 Other specified disorders of bone density and structure, other site
CPT/HCPCS: 77080

== ENCOUNTER → 2023-06-26 10:00 | Outpatient (CLI) | payer MEDICARE, OTHER, SELFPAY ==
--- NOTE | 2023-06-26 10:01 | DI.MRI.S_ITS ---
PROCEDURE: MR ELBOW RT WO CON INDICATIONS: weakness, pain TECHNIQUE: Noncontrast coronal proton density fast spin echo and T2 fast spin echo with fat saturation, axial and sagittal T1 spin echo and T2 fast spin echo with fat saturation through the elbow. COMPARISON: None. FINDINGS: Image quality: Excellent. Lateral structures: The lateral ulnar collateral ligament and radial collateral ligament both appear thickened with intrasubstance T2 hyperintense signal. The overlying common extensor tendon also appears thickened with intrasubstance T2 hyperintense signal at its insertion on lateral humeral condyle. Medial structures: The ulnar collateral ligament appears intact. The overlying common flexor tendon appears normal. The ulnar nerve appears normal in size and signal within the cubital tunnel. Anterior structures: The biceps and brachialis tendons both appear intact as they insert onto the proximal radius and ulna, respectively. No bicipitoradial bursal fluid. The median and radial neurovascular bundles appear normal; no focal muscle atrophy to suggest nerve impingement. Posterior structures: The conjoint triceps tendon from the long and lateral heads appears intact. The medial head of the triceps tendon also appears normal, with direct muscle insertion onto the olecranon. No olecranon bursal fluid. Bone and cartilage: No bone marrow contusions or fractures. No osteochondral injuries. Elbow joint osteoarthritic changes are seen with joint space narrowing and subchondral sclerosis. IMPRESSION: 1. Finding is consistent with moderate lateral epicondylitis with sprain/low-grade partial-thickness tear involving lateral collateral ligaments and low-grade partial-thickness tear involving common extensor tendon origin at lateral epicondyle. 2. Other elbow tendons and ligaments are intact. 3. Mild elbow joint osteoarthritis. No marrow edema. No evidence of osteochondral injuries. Dictated by: Jose Qiu M.D. on 06/28/2023 at 10:58 Approved by: Jose Qiu M.D. on 06/28/2023 at 11:07
== END ==
LOC: MRI 10:01
PROVIDERS: Family Provider Family Medicine; PCP Family Medicine; Referring Provider Family Medicine; Visit Provider Family Medicine
DX: S56.511A Strain of other extensor muscle, fascia and tendon at forearm level, right arm, initial encounter (principal); S53.431A Radial collateral ligament sprain of right elbow, initial encounter; S53.441A Ulnar collateral ligament sprain of right elbow, initial encounter; M25.521 Pain in right elbow; M19.021 Primary osteoarthritis, right elbow
CPT/HCPCS: 73221

== ENCOUNTER → 2023-07-19 13:39 | Outpatient (CLI) | payer MEDICARE, OTHER, SELFPAY ==
[2023-07-19 14:15] LABS: Add Manual Diff / Slide Review NO; Basophils Absolute Auto 0 /uL (0-100); Basophils Percent Auto 0.7 % (0-2); Eosinophils Absolute Auto 200 /uL (0-450); Eosinophils Percent Auto 2.3 % (2-4); Hematocrit 34.4 % (36-46); Hemoglobin 10.9 g/dL (12.0-16.0); Lymphocytes Absolute Auto 1700 /uL (1100-4500); Lymphocytes Percent Auto 25.9 % (25-40); Mean Corpuscular HGB Conc 31.8 % (30-36); Mean Corpuscular Hemoglobin 27.8 PG (26-34); Mean Corpuscular Volume 87.5 fL (80-100); Monocytes Absolute Auto 500 /uL (0-900); Monocytes Percent Auto 8.1 % (3-14); Neutrophils Absolute Auto 4100 /uL (1500-7000); Platelet Count 280 X10^3/uL (150-400); Red Blood Cell Count 3.94 X10^6/uL (4.0-5.2); White Blood Cell Count 6.6 X10^3/uL (4.5-11.0)
[2023-07-19 14:36] LABS: Alanine Aminotransferase 33 IU/L (<35); Albumin 4.6 g/dL (3.5-5.0); Albumin Globulin Ratio 1.7 (1.0-2.8); Alkaline Phosphatase 72 U/L (38-126); Aspartate Aminotransferase 39 IU/L (14-36); BUN Creatinine Ratio 16.9 (6-22); Bilirubin Total 0.6 mg/dL (0.2-1.3); Blood Urea Nitrogen 13 mg/dL (7-17); Calcium 10.1 mg/dL (8.4-10.2); Carbon Dioxide 31 mmol/L (22-32); Chloride 105 mmol/L (98-107); Estimated Glomerular Filt Rate > 60 mL/min (>60); Globulin 2.7 g/dL (1.7-4.1); Glucose 109 mg/dL (80-110); HEMOLYSIS < 15 (0-50); Potassium 4.1 mmol/L (3.4-5.1); Sodium 138 mmol/L (137-145); Total Protein 7.3 g/dL (6.3-8.2)
[2023-07-19 14:41] LABS: HEMOLYSIS < 15 (0-50); Iron 167 ug/dL (37-170)
[2023-07-19 14:54] LABS: Percent Iron Saturation 44 % (15-50); Total Iron Binding Capacity 378 ug/dL (265-497); Transferrin 326 mg/dL (206-381)
== END ==
PROVIDERS: Family Provider Family Medicine; PCP Family Medicine; Referring Provider Family Medicine; Visit Provider Family Medicine
DX: I10 Essential (primary) hypertension (principal); Z86.39 Personal history of other endocrine, nutritional and metabolic disease; Z87.19 Personal history of other diseases of the digestive system
CPT/HCPCS: 36415; 80053; 83540; 83550; 85025

== ENCOUNTER → 2023-08-10 15:48 | Outpatient (CLI) | payer MEDICARE, OTHER, SELFPAY ==
[2023-08-10 16:36] LABS: Influenza A - CEPHEID Flu A NEGATIVE (NEGATIVE); Influenza B - CEPHEID Flu B NEGATIVE (NEGATIVE); Respiratory Syncytial Virus Negative (Negative)
[2023-08-10 16:46] LABS: COVID-19 CEPHEID 4-PLEX PCR Negative (Negative)
== END ==
PROVIDERS: Family Provider Family Medicine; PCP Family Medicine; Visit Provider Physician Assistant
DX: R05.9 Cough, unspecified (principal); R09.82 Postnasal drip
CPT/HCPCS: 0241U

== ENCOUNTER → 2023-09-10 12:35 | Outpatient (CLI) | payer MEDICARE, OTHER, SELFPAY ==
--- NOTE | 2023-09-10 12:36 | DI.MG.S_ITS ---
BILATERAL DIGITAL SCREENING MAMMOGRAM 3D/2D WITH CAD: 09/10/2023 CLINICAL: Routine screening. Family history of breast cancer. Comparison is made to exams dated: 09/08/2022 mammogram, 09/02/2021 mammogram, and 08/31/2020 mammogram - [facility]. Both breasts are almost entirely fatty (category a/<25% glandular tissue). Current study was also evaluated with a Computer Aided Detection (CAD) system. No significant masses, calcifications, or other findings are seen in either breast. There has been no significant interval change. IMPRESSION: NEGATIVE There is no mammographic evidence of malignancy. A 1 year screening mammogram is recommended. Based on the Tyrer Cuzick model (a risk assessment model) the patient's lifetime risk is 6.3% and her 10 year risk is 4.4%. According to the ACR, ACS, and NCCN guidelines, an annual breast MRI exam along with mammogram is recommended if the patient's lifetime risk is 20% or greater. This exam was interpreted at Station ID: [id number]. NOTE: For mammograms, a report in lay terms will be sent to the patient. Approximately 15% of breast malignancies will not be visualized mammographically. In the management of a palpable breast mass, a negative mammogram must not discourage biopsy of a clinically suspicious lesion. Electronically Signed By: Flavia Mercado M.D., Ph.D. [email or web address]/[email or web address]:09/10/2023 14:34:40 letter sent: Normal Exam ACR BI-RADS Category 1: Negative [id number]
== END ==
PROVIDERS: Family Provider Family Medicine; PCP Family Medicine; Referring Provider Family Medicine; Visit Provider Family Medicine
DX: Z12.31 Encounter for screening mammogram for malignant neoplasm of breast (principal); Z80.3 Family history of malignant neoplasm of breast; R92.313 Mammographic fatty tissue density, bilateral breasts
CPT/HCPCS: 77063; 77067

== ENCOUNTER → 2023-09-23 15:16 | Outpatient (CLI) | payer MEDICARE, OTHER, SELFPAY ==
[2023-09-23 16:03] LABS: Add Manual Diff / Slide Review NO; Basophils Absolute Auto 0 /uL (0-100); Basophils Percent Auto 0.9 % (0-2); Eosinophils Absolute Auto 200 /uL (0-450); Eosinophils Percent Auto 5.3 % (2-4); Hematocrit 33.6 % (36-46); Lymphocytes Absolute Auto 900 /uL (1100-4500); Lymphocytes Percent Auto 25.4 % (25-40); Mean Corpuscular HGB Conc 32.7 % (30-36); Mean Corpuscular Hemoglobin 28.2 PG (26-34); Mean Corpuscular Volume 86.5 fL (80-100); Monocytes Absolute Auto 500 /uL (0-900); Monocytes Percent Auto 12.7 % (3-14); Neutrophils Absolute Auto 2100 /uL (1500-7000); Neutrophils Percent Auto 55.7 % (50-75); Platelet Count 194 X10^3/uL (150-400); Red Blood Cell Count 3.88 X10^6/uL (4.0-5.2); Red Cell Distribution Width 19.4 % (11.6-14.8); White Blood Cell Count 3.7 X10^3/uL (4.5-11.0)
[2023-09-23 16:27] LABS: BUN Creatinine Ratio 15.9 (6-22); Blood Urea Nitrogen 13 mg/dL (7-17); Calcium 9.5 mg/dL (8.4-10.2); Carbon Dioxide 31 mmol/L (22-32); Chloride 105 mmol/L (98-107); Creatine Kinase 97 U/L (30-135); Estimated Glomerular Filt Rate > 60 mL/min (>60); Glucose 112 mg/dL (80-110); HEMOLYSIS < 15 (0-50); Potassium 3.6 mmol/L (3.4-5.1); Sodium 140 mmol/L (137-145)
[2023-09-23 16:39] LABS: Troponin I < 0.012 ng/mL (0.01-0.034)
[2023-09-23 17:01] LABS: TSH w/ Reflex to FT4 0.14 uIU/mL (0.47-4.68)
[2023-09-23 17:29] LABS: Free T4, Direct Thyroxine 1.04 ng/dL (0.78-2.19)
[2023-09-23 21:22] LABS: Hemoglobin A1C% w Est Avg Glu 6.2 % (4.0-6.0)
[2023-09-27 15:12] LABS: Free T3, Triiodothyronine Free 3.64 pg/mL (2.77-5.27)
[2023-09-28 18:41] LABS: Anti Thyroglobulin Antibody <1.0 IU/mL (0.0-0.9); Thyroid Peroxidase Antibodies 18 IU/mL (0-34)
== END ==
LOC: LAB 15:17
PROVIDERS: Family Provider Family Medicine; PCP Family Medicine; Referring Provider Nurse Practitioner Family; Visit Provider Nurse Practitioner Family
DX: R06.02 Shortness of breath (principal); I10 Essential (primary) hypertension
CPT/HCPCS: 36415; 80048; 82550; 83036; 84439; 84443; 84481; 84484; 85025; 86376; 86800

== ENCOUNTER → 2023-10-01 14:41 | Outpatient (CLI) | payer MEDICARE, OTHER, SELFPAY ==
--- NOTE | 2023-10-01 14:42 | DI.US.S_ITS ---
PROCEDURE: US THYROID INDICATIONS: DECREASED TSH TECHNIQUE: Real-time scanning was performed of the thyroid gland, with image documentation. COMPARISON: None. FINDINGS: Thyroid: Right lobe measures 4.7 x 1.2 x 1.8 cm. Left lobe measures 4.8 x 0.7 x 0.9 cm. Isthmus is 0.2 cm thick. Echotexture is homogeneous. Nodule number: 1 Location: Right mid Size: 1.2 x 0.4 x 0.7 cm. Composition: Spongiform Echogenicity: Hypoechoic Shape: wider than tall. Margins: Smooth Echogenic foci: None Total points: 2 ACR TI-RADS category: 2 (not suspicious) IMPRESSION: Right thyroid 1.2 cm nodule, TI-RADS 2 (not suspicious). No imaging follow-up for FNA recommended per guidelines below. ACR TI-RADS definitions and recommendations: TI-RADS 1 (benign): 0 points. FNA not needed. TI-RADS 2 (not suspicious): 2 points. FNA not needed. TI-RADS 3 (mildly suspicious): 3 points. * FNA if 2.5 cm or larger, follow up if 1.5 cm or larger (at 1, 3, and 5 years). TI-RADS 4 (moderately suspicious): 4-6 points. * FNA if 1.5 cm or larger, follow up if 1 cm or larger (at 1, 2, 3, and 5 years). TI-RADS 5 (highly suspicious): 7 points or more. * FNA if 1 cm or larger, follow up if 0.5 cm or larger (every year for 5 years). Approved by: Flavia Mercado M.D.,Ph.D. on 10/04/2023 at 22:53
== END ==
PROVIDERS: Family Provider Family Medicine; PCP Family Medicine; Referring Provider Nurse Practitioner Family; Visit Provider Nurse Practitioner Family
DX: E04.1 Nontoxic single thyroid nodule (principal); R79.89 Other specified abnormal findings of blood chemistry
CPT/HCPCS: 76536

== ENCOUNTER → 2023-11-01 11:07 | Outpatient (CLI) | payer MEDICARE, OTHER, SELFPAY ==
[2023-11-01 12:13] LABS: Reticulocyte Count, Percent 1.4 % (1.1-2.6)
[2023-11-01 12:32] LABS: HEMOLYSIS < 15 (0-50); Iron 155 ug/dL (37-170)
[2023-11-01 12:46] LABS: Percent Iron Saturation 43 % (15-50); Total Iron Binding Capacity 359 ug/dL (265-497); Transferrin 298 mg/dL (206-381)
[2023-11-01 12:54] LABS: Thyroid Stimulating Hormone 0.957 uIU/mL (0.47-4.68)
== END ==
PROVIDERS: Family Provider Family Medicine; PCP Family Medicine; Referring Provider Family Medicine; Visit Provider Family Medicine
DX: Z86.39 Personal history of other endocrine, nutritional and metabolic disease (principal); R79.89 Other specified abnormal findings of blood chemistry; R53.83 Other fatigue
CPT/HCPCS: 36415; 83540; 83550; 84443; 85045

== ENCOUNTER 2023-11-06 14:59 | Emergency (ER) | payer MEDICARE, OTHER, SELFPAY ==
[2023-11-06] VITALS (7 sets, daily range): BP systolic 120–138; BP diastolic 62–78; PULSE 72–83; RESP 18; TEMP 37.3; O2SAT 95–98; BMI 33.7
--- NOTE | 2023-11-06 15:11 | DI.CT.S_ITS ---
PROCEDURE: CT HEAD/BRAIN WO CON INDICATIONS: fall, hit head, left knee pain, swelling, ? patella dis/?fx TECHNIQUE: Noncontrast 4.5 mm thick angled axial sections acquired from the foramen magnum to the vertex, with coronal and sagittal reformats. For radiation dose reduction, the following was used: automated exposure control, adjustment of mA and/or kV according to patient size. COMPARISON: [facility], CT, CT CERVICAL SPINE WO CON, 11/06/2023, 15:36. [facility], CT, CT LE LT WO CON, 11/06/2023, 15:54. FINDINGS: Image quality: Mild streak artifact can be seen through the skull base. CSF spaces: Basal cisterns are patent. No extra-axial fluid collections. The ventricles are symmetric in size and shape. Brain: No intracranial bleeds or masses. There is cerebral volume loss for age, with resultant ventricular and sulcal prominence. There are periventricular and deep white matter chronic small vessel ischemic changes. There is intracranial internal carotid artery atherosclerosis. Skull and face: Calvarium and visualized facial bones appear intact, without suspicious lesions. Sinuses: Visualized sinuses and mastoids are clear. IMPRESSION: No acute intracranial hemorrhage is seen. No acute intracranial pathology. Dictated by: Clem Hernandez M.D. on 11/06/2023 at 15:27 Approved by: Clem Hernandez M.D. on 11/06/2023 at 15:27
--- NOTE | 2023-11-06 15:11 | DI.CT.S_ITS ---
PROCEDURE: CT CERVICAL SPINE WO CON INDICATIONS: fall, hit head, left knee pain, swelling, ? patella dis/?fx TECHNIQUE: Noncontrast 3 mm thick sections acquired from the skull base to the T4 level. Sagittal and coronal reformats were then constructed. For radiation dose reduction, the following was used: automated exposure control, adjustment of mA and/or kV according to patient size. COMPARISON: [facility], CT, CT HEAD/BRAIN WO CON, 11/06/2023, 15:36. [facility], CT, CT LE LT WO CON, 11/06/2023, 15:54. FINDINGS: Image quality: There is artifact associated with the metallic hardware. Artifact from the metallic hardware is reduced by metal reconstruction algorithm. Bones: No fractures or dislocations. Visualized superior ribs are intact. Focal degenerative change is seen involving the C1-C2 interface anteriorly. There is at least moderate disc space narrowing seen at C3-C4, C4-C5 and C5-C6, with moderate to severe disc space narrowing seen at C6-C7. Multiple levels of posteriorly directed endplate osteophytes are seen. Several levels of significant facet hypertrophy can be seen. Soft tissues: Prevertebral soft tissues are normal in thickness. No paravertebral hematomas. No apical pneumothoraces. IMPRESSION: No displaced fracture or traumatic subluxation. Multiple levels of significant cervical spine degenerative change are seen. Dictated by: Clem Hernandez M.D. on 11/06/2023 at 15:25 Approved by: Clem Hernandez M.D. on 11/06/2023 at 15:26
--- NOTE | 2023-11-06 15:11 | DI.RAD.S_ITS ---
PROCEDURE: XR KNEE LT 3V INDICATIONS: fall, hit head, left knee pain, swelling, ? patella dis/?fx TECHNIQUE: 3 views of the knee were acquired. COMPARISON: None. FINDINGS: Bones: There is a significantly displaced comminuted patella fracture seen. Soft tissues: Associated soft tissue swelling is seen. IMPRESSION: Significantly displaced, comminuted patella fracture. Dictated by: Clem Hernandez M.D. on 11/06/2023 at 15:00 Approved by: Clem Hernandez M.D. on 11/06/2023 at 15:03
--- NOTE | 2023-11-06 15:14 | ED_ITS ---
HPI - Fall General Chief Complaint: Fall Stated Complaint: Mech fall,head lac,patella dislocated/fractured Time Seen by Provider: 11/06/23 15:03 Source: patient, EMS, RN notes reviewed and old records reviewed Mode of arrival: EMS Limitations: no limitations History of Present Illness HPI Narrative: 73-year-old with history of hypertension, GERD who presents with complaint of ground level fall. Patient has pain of her left knee with swelling and deformity as well as hitting her head in the small amount of blood on her forehead. Patient states she went to the [employer] locally, tripped on an electrical cord that was across the sidewalk and fell onto her knee and struck her head. She states no loss of consciousness denies headache or neck pain, no chest pain or shortness of breath. No nausea or vomiting. Denies any GI or urinary symptoms. Main complaint pain in her left knee has obvious deformity and swelling. Patient states she has not sure if she can straighten it she has not attempted it is very painful to attempt to straighten it. Denies any numbness tingling or weakness of her lower foot is able to flex and extend her foot but is painful at the knee to plantar flex and dorsiflex. Patient does not take any anticoagulants medications include losartan, Paxil, Protonix and Flonase. Penicillin and ciprofloxacin. Patient states no recent surgeries. No tobacco, has a glass or 2 of alcohol nightly, no recreational drugs. Patient brought in by EMS and shortly arrived afterwards. Patient states she was assisted by multiple individuals immediately after it happened. She is unsure of her tetanus status. Related Data Home Medications Medication Instructions Recorded Confirmed calcium-vitamin D3-vitamin K 500 1 tab PO BID 03/17/18 10/28/23 mg-500 unit-40 mcg chewable tablet (Viactiv) omega-3 fatty acids 1,000 mg 1,000 mg PO DAILY 03/17/18 10/28/23 capsule (Fish Oil Concentrate) red yeast rice 600 mg capsule 1,200 mg PO DAILY 03/17/18 10/28/23 cetirizine 10 mg capsule (Zyrtec) 10 mg PO DAILY PRN 04/22/22 10/28/23 clobetasol 0.05 % topical cream 1 applic topical DAILY 04/22/22 10/28/23 fluticasone propionate 50 1 spray intranasal DAILY 04/22/22 10/28/23 mcg/actuation nasal spray,suspension (Flonase Allergy Relief) psyllium 1 tbsp PO DAILY 04/22/22 10/28/23 vit C 250 mg-vit E 200 unit-zinc cap PO 04/22/22 10/28/23 ox 12.5 [id number] capsule (ICaps AREDS2) Previous Rx's Medication Instructions Recorded losartan 25 mg tablet 25 mg PO DAILY #90 tabs 12/14/22 paroxetine HCl 30 mg tablet 30 mg PO DAILY #90 tabs 06/04/23 pantoprazole 20 mg tablet,delayed 20 mg PO DAILY #90 tabs 10/08/23 release buspirone 5 mg tablet 5 - 10 mg (1 - 2 x 5 mg) PO BID 10/13/23 PRN anxiety #30 tabs metronidazole 0.75 % topical gel 1 applic topical DAILY #45 grams 10/28/23 prednisone 20 mg tablet 40 mg (2 x 20 mg) PO DAILY #10 tabs 10/28/23 oxycodone 5 mg tablet 5 mg PO QID PRN pain #20 tabs 11/06/23 Allergies Allergy/AdvReac Type Severity Reaction Status Date / Time ciprofloxacin [From Cipro] Allergy Mild Urticaria Verified 11/06/23 15:11 Penicillins Allergy Mild RASH Verified 11/06/23 15:11 Review of Systems Review of Systems ROS Unobtainable: All systems reviewed & are unremarkable except as noted in HPI and below Patient History Medical History Benign essential HTN Rosacea Allergies PTSD (post-traumatic stress disorder) Anxiety Osteopenia Foot pain Chronic back pain Carpal tunnel syndrome Ankle pain Measles Chicken pox Vertigo Cataracts, bilateral Ovarian cyst (~1979) Fibroids (~2011) Hemorrhoid (~2018) Colitis (~1974) Easy bruisability Anemia Depression Migraines UTI (urinary tract infection) GERD (gastroesophageal reflux disease) (~1974) Pain Arthritis Pneumonia History of blood clots Surgical History Anesthesia History of hemorrhoidectomy (~04/2018) History of colonoscopy Hx of oophorectomy (~1979) S/P trigger finger release (05/07/16) History of carpal tunnel release (01/18/14) Hx of cholecystectomy (~1986) S/P tonsillectomy and adenoidectomy (~1962) History of tonsillectomy (~1962) H/O bilateral breast reduction surgery (~2004) H/O: hysterectomy (~11/2012) Family History Mother Hypertension Heart disease Stroke Congestive heart failure Osteoporosis Father Hypertension Cancer Brother Hyperlipidemia Brother Hyperlipidemia Sister Hyperlipidemia Stroke Sister Stroke Social History marital status: household members: spouse Smoking Status: Former smoker alcohol intake: current substance use type: does not use Smoking Status: Former smoker alcohol intake frequency: 0-2 drinks per day Substance Use Type: marijuana Exam Narrative Exam Narrative: GEN: Patient appears in mild distress. HEAD: No evidence of trauma except for punctate laceration at the right forehead and abrasion, no raccoon/Means sign. NECK: Nontender, painless range of motion, trachea midline Negative Nexus criteria, midline line tenderness, distracting injury, altered mental status, neuro deficit, recent EtOH. EYES: PERRLA, EOMI ENT: External inspection normal, trachea is midline, TM's are normal no hemotypanum, Nares are clear, no septal hematoma, no dental or oral injury, airway is normal and with normal occlusion, No bony tenderness RESP: Chest is nontender and has symmetric movement, no ecchymosis, breath sounds are normal no crackles, wheezes or rales CVS: Heart sounds are normal, no murmur noted, No JVD. ABG/GI: Nontender, soft, normal bowel sounds, no distention, no organomegaly, pelvic rock is negative NEURO: Oriented AOx3, neuro is grossly intact, sensation and motor is normal all 4 extremities moving, cranial nerves II through XII are intact, GCS is 15 PSYCH: Normal mood and affect SKIN: Intact, warm and dry, no crepitus and without decubitus BACK: No CVA tenderness, no vertebral tenderness, no step-off's, no crepitus EXT: Patient has obvious swelling and deformity of the left, patella seems to be little bit inferior and medial compared to the opposite, but patient has quite a bit of ecchymosis. Patient has tenderness of the proximal tibia as wel l, none over the fibula. No tenderness of the ankle, foot or toes. No tenderness over the greater trochanter. Patient has pain with any attempt at flexion or extension of the knee. Is able to dorsiflex plantar flex the foot. 2+ dorsalis pedis bilaterally. Normal sensation bilaterally. Patient has nontender bilateral upper extremities with 2+ radial pulses and sensation. Initial Vital Signs Initial Vital Signs: Vital Signs Pulse Rate 79 11/06/23 15:02 Blood Pressure 124/78 11/06/23 15:02 Pulse Oximetry 98 11/06/23 15:02 Course Orders Ordered: Discontinued Medications Diphtheria/Tetanus/Acell Pertussis (Tet,Diph,Pertuss(Acell),Vac/Pf 0.5 Ml Syringe) 0.5 ml IM .ONCE ONE Stop: 11/06/23 15:12 Last Admin: 11/06/23 15:29 Dose: 0.5 ml Documented By: GIBSON Morphine Sulfate (Morphine 2 Mg/Ml Inj) 2 mg IV NOW ONE Stop: 11/06/23 16:20 Last Admin: 11/06/23 16:24 Dose: 2 mg Documented By: ERMA Vital Signs Vital signs: Vital Signs - 8 hr 11/06/23 15:02 11/06/23 15:02 11/06/23 15:05 Temperature 99.1 F Pulse Rate 79 81 Respiratory Rate 18 Blood Pressure 124/78 124/78 Pulse Oximetry 98 96 Oxygen Delivery Method Room Air 11/06/23 15:30 11/06/23 15:30 11/06/23 16:10 Temperature Pulse Rate 77 72 Respiratory Rate Blood Pressure 124/62 Pulse Oximetry 95 Oxygen Delivery Method 11/06/23 16:11 11/06/23 16:11 11/06/23 16:30 Temperature Pulse Rate 74 83 Respiratory Rate Blood Pressure 120/69 Pulse Oximetry 97 Oxygen Delivery Method MDM - Fall Imaging Data CT scan - head: Radiologist's Impression: [address] [address] [address] Scan Report Signed Patient: Rosmery Carroll MR#: [id number] : 1950 Acct:[id number] Age/Sex: 73 / F Date of Service: 11/06/23 Loc: ED Accession Number: [id number] Procedure: CT head/brain wo con Ordering Provider: Michelle Cast D.O. PROCEDURE: CT HEAD/BRAIN WO CON INDICATIONS: fall, hit head, left knee pain, swelling, ? patella dis/?fx TECHNIQUE: Noncontrast 4.5 mm thick angled axial sections acquired from the foramen magnum to the vertex, with coronal and sagittal reformats. For radiation dose reduction, the following was used: automated exposure control, adjustment of mA and/or kV according to patient size. COMPARISON: [facility], CT, CT CERVICAL SPINE WO CON, 11/06/2023, 15:36. [facility], CT, CT LE LT WO CON, 11/06/2023, 15:54. FINDINGS: Image quality: Mild streak artifact can be seen through the skull base. CSF spaces: Basal cisterns are patent. No extra-axial fluid collections. The ventricles are symmetric in size and shape. Brain: No intracranial bleeds or masses. There is cerebral volume loss for age, with resultant ventricular and sulcal prominence. There are periventricular and deep white matter chronic small vessel ischemic changes. There is intracranial internal carotid artery atherosclerosis. Skull and face: Calvarium and visualized facial bones appear intact, without suspicious lesions. Sinuses: Visualized sinuses and mastoids are clear. IMPRESSION: No acute intracranial hemorrhage is seen. No acute intracranial pathology. Dictated by: Clem Hernandez M.D. on 11/06/2023 at 15:27 Approved by: Clem Hernandez M.D. on 11/06/2023 at 15:27 CT - cervical spine: Radiologist's Impression: Rosmery Carroll??73??F??1950 ? Allergy/Adv: ciprofloxacin, Penicillins (More??) Close Lower Extremity CT 11/06/23 Knee X-Ray (Signed) Clem Hernandez - 11/06/[address] (Signed) Clem Hernandez - 11/06/[address] (Signed) Clem Hernandez - 11/06/23 Thyroid Ultrasound (Signed) Jess,Flavia - 10/01/23 Mammogram Screening (Signed) Jess,Flavia - 09/10/23 Elbow MRI (Signed) Jose Qiu - 06/26/23 DI Result 05/24/23 Chest X-Ray (Signed) Neetu Dougherty - 03/30/23 Mammogram Screening (Signed) Art Rosario - 09/08/22 Mammogram Screening (Signed) HernadezSergio yousif - 09/02/21 Bone Densitometry 10/31/20 Mammogram Screening (Signed) Carlos Grossman - 08/31/20 Bone Densitometry 09/04/19 Mammogram Screening (Addendum) Humble Martinez - 08/31/19 Bone Densitometry (Signed) Osmany Maier - 04/15/19 Launch?Image [address] [address] [address] Scan Report Signed Patient: Rosmery Carroll MR#: [id number] : 1950 Acct:[id number] Age/Sex: 73 / F Date of Service: 11/06/23 Loc: ED Accession Number: [id number] Procedure: CT cervical spine wo con Ordering Provider: Michelle Cast D.O. PROCEDURE: CT CERVICAL SPINE WO CON INDICATIONS: fall, hit head, left knee pain, swelling, ? patella dis/?fx TECHNIQUE: Noncontrast 3 mm thick sections acquired from the skull base to the T4 level. Sagittal and coronal reformats were then constructed. For radiation dose reduction, the following was used: automated exposure control, adjustment of mA and/or kV according to patient size. COMPARISON: [facility], CT, CT HEAD/BRAIN WO CON, 11/06/2023, 15:36. [facility], CT, CT LE LT WO CON, 11/06/2023, 15:54. FINDINGS: Image quality: There is artifact associated with the metallic hardware. Artifact from the metallic hardware is reduced by metal reconstruction algorithm. Bones: No fractures or dislocations. Visualized superior ribs are intact. Focal degenerative change is seen involving the C1-C2 interface anteriorly. There is at least moderate disc space narrowing seen at C3-C4, C4-C5 and C5-C6, with moderate to severe disc space narrowing seen at C6-C7. Multiple levels of posteriorly directed endplate osteophytes are seen. Several levels of significant facet hypertrophy can be seen. Soft tissues: Prevertebral soft tissues are normal in thickness. No paravertebral hematomas. No apical pneumothoraces. IMPRESSION: No displaced fracture or traumatic subluxation. Multiple levels of significant cervical spine degenerative change are seen. Dictated by: Clem Hernandez M.D. on 11/06/2023 at 15:25 Approved by: Clem Hernandez M.D. on 11/06/2023 at 15:26 Extremity x-ray #1: Radiologist's Impression: Rosmery Carroll? 73? F? 1950 ? ?? Allergy/Adv: ciprofloxacin, Penicillins [address] [address] XRay Report? Signed Patient: Rosmery Carroll MR#: [id number] : 1950 Acct:[id number] Age/Sex: 73 / F Date of Service: 11/06/23 Loc: ED Accession Number: [id number]? ? Procedure: XR knee LT 3V Ordering Provider: Michelle Cast D.O. PROCEDURE:? XR KNEE LT 3V ? INDICATIONS:? fall, hit head, left knee pain, swelling, ? patella dis/?fx ? TECHNIQUE:? 3 views of the knee were acquired.?? ? COMPARISON:? None. ? FINDINGS:?? ? Bones:? There is a significantly displaced comminuted patella fracture seen. ? Soft tissues:? Associated soft tissue swelling is seen. ? ? IMPRESSION: ?? Significantly displaced, comminuted patella fracture. ? ? Dictated by: Clem Hernandez M.D. on 11/06/2023 at 15:00? ? ? Approved by: Clem Hernandez M.D. on 11/06/2023 at 15:03? ? MDM Narrative Medical decision making narrative: 73-year-old mechanical ground level fall patient tripped over electrical [employer] local [facility]. Patient did strike her head, has a only very small abrasion small amount of blood, head CT is negative as well as C-spine. Patient has significant bruising swelling discomfort of the knee. X-rays negative except for a significantly displaced comminuted patellar fracture, fracture is closed with no lacerations or open wounds. Spoke with orthopedic surgery who asked for CT of the knee presurgical planning with plan for outpatient follow-up and repair in the OR. Tetanus was updated Knee xray - patellar fracture, significantly displaced, comminuted. Head CT is negative Cervical Spine Ct is negative. Knee CT comminuted and displaced 3.7cm, no fracture of femur or tibia, mild joint effusion. Soft tissue swelling anteriorly. Spoke with Dr. Soto, orthopedic surgery, asked for CT noncontrast of the knee for surgical planning. Plan for immobilizer, weightbear as tolerated ice rest elevation patient is to call the office Wednesday to set up follow up and for surgical repair. Discharge Plan Departure Patient Disposition: Home Clinical Impression: Patellar fracture Qualifiers: Encounter type: initial encounter Fracture type: closed Fracture morphology: comminuted Fracture alignment: displaced Laterality: left Qualified Code(s): S82.042A - Displaced comminuted fracture of left patella, initial encounter for closed fracture Instructions: DI for Patella Fracture Activity Restrictions/Additional Instructions: Follow up with orthopedic surgery, call Wednesday to set up an appointment. I spoke with Dr. Soto the on-call surgeon and they will review your images with plan for surgical repair of your fractured patella or kneecap. You may weightbear as tolerated. Can take Tylenol up to a 1000 mg every 6 hours. You can take 1-2 tablets of oxycodone every 6 hours as needed. This medication can make you sleepy do not drive, perform hazardous activities or make any major decisions while taking it. This medication will make you constipated please take a stool softener once to twice daily until stools are soft and regular. Prescription sent to [facility] in [place]. Splint Care: Keep splint clean and dry. Elevated affected body part to decrease swelling. OK to use ice pack on the affected body part. Use for 15-20 minutes each time, for 5-6x per day. If you develop worsening pain, numbness, tingling, discoloration of the affected body part, loosen the splint by loosening the KALANI wrap, and either see your doctor for an urgent re-assessment, or return to the Emergency Department. Return to the Emergency Department for any new or worsening symptoms. Prescriptions: New oxycodone 5 mg tablet 5 mg PO QID PRN (Reason: pain) Qty: 20 0RF No Action pantoprazole 20 mg tablet,delayed release (DR/EC) 20 mg PO DAILY Qty: 90 1RF Zyrtec 10 mg capsule 10 mg PO DAILY PRN ICaps AREDS2 250 mg-200 unit -12.5 mg-1 mg capsule PO fluticasone propionate [Flonase Allergy Relief] 50 mcg/actuation spray,suspension 1 spray intranasal DAILY Rx Instructions: administer into each nostril clobetasol 0.05 % cream 1 applic topical DAILY psyllium Powder 1 tbsp PO DAILY Rx Instructions: mix into at least 8 oz of water or juice before administering paroxetine HCl 30 mg tablet 30 mg PO DAILY Qty: 90 3RF buspirone 5 mg tablet 5 - 10 mg PO BID PRN (Reason: anxiety) Qty: 30 0RF prednisone 20 mg tablet 40 mg PO DAILY Qty: 10 0RF metronidazole 0.75 % gel 1 applic topical DAILY Qty: 45 0RF losartan 25 mg tablet 25 mg PO DAILY Qty: 90 3RF calcium-vitamin D3-vitamin K [Viactiv] 500-500-40 mg-unit-mcg tablet,chewable 1 tab PO BID omega-3 fatty acids [Fish Oil Concentrate] 1,000 mg capsule 1,000 mg PO DAILY red yeast rice 600 mg capsule 1,200 mg PO DAILY Referrals: Trisha Soto MD [Physician] - Edyta Salinas DO [Primary Care Provider] - Stand Alone Forms: Patient Portal/API
[2023-11-06] MEDS: TET,DIPH,PERTUSS(ACELL),VAC/PF 0.5 ML SYRINGE IM (15:29)
--- NOTE | 2023-11-06 15:51 | DI.CT.S_ITS ---
PROCEDURE: CT LE LT W CON INDICATIONS: knee 2nd patellar fx, requested by ortho TECHNIQUE: Noncontrast 1-1.5 mm axial sections acquired from the mid-patella to the proximal tibia, with coronal and sagittal reformats. COMPARISON: [facility], CT, CT HEAD/BRAIN WO CON, 11/06/2023, 15:36. [facility], CT, CT CERVICAL SPINE WO CON, 11/06/2023, 15:36. [facility], CR, XR KNEE LT 3V, 11/06/2023, 15:17. FINDINGS: Image quality: Excellent. Bones: There is a comminuted patella fracture seen, with displacement of the fracture fragments of 3.7 cm. No fracture of the distal femur can be seen. No tibial plateau fracture is seen. Soft tissues: There is a mild joint effusion. Soft tissue swelling can be seen anteriorly. IMPRESSION: Comminuted and significantly displaced patella fracture, without additional fracture seen. Dictated by: Clem Hernandez M.D. on 11/06/2023 at 16:02 Approved by: Clem Hernandez M.D. on 11/06/2023 at 16:03
[2023-11-06] MEDS: MORPHINE 2 MG/ML INJ IV (16:24)
--- NOTE | 2023-11-06 16:55 | PC.NURSE ---
Provider talked to patient about potential referral to home health. Patient and spouse have history with [facility] and would prefer that organization over [facility] but are willing to go with either of the other two if [facility] is unwilling or unable to set up services for her. This RN printed out facesheet and placed in PIPING BLOCKER box for followup with sticky note to refer to this note on top.
--- NOTE | 2023-11-07 12:12 | CM.SWNOTE ---
ED OLIVE PACKER follow up Note OLIVE PACKER receives ED OLIVE PACKER follow up consult due to concern for patient's recent GLF and Patella fracture, need for HH referral. ED provider was Dr. Michelle Cast, Dr. Cast is not in today and Dr. Lakhani kindly agreed to sign off on a HH referral F2F. Per RN, patient's preference is [facility]. OLIVE PACKER calls [facility] and leaves message, OLIVE PACKER faxes F2F, order and clinicals for HH referral (PT, OT, RN, HH aide and OLIVE PACKER). OLIVE PACKER calls patient regarding this and patient states she is doing okay and able to get to the bathroom with FWW. Patient states she is worried about insurance coverage due to hx of outpt PT in the past. OLIVE PACKER discusses that [facility] will likely not get back to her about the referral until Wednesday or Wednesday. Plan: HH referral in place with [facility], f/u with [facility] and patient as needed regarding referral. Lilo Ferguson, ELECTROPLATER
--- NOTE | 2023-11-15 14:12 | CM.SWNOTE ---
ED SHUTTLER CAR Note: ED SHUTTLER CAR received a call from Dr. Taylor Philip regarding this pt as pt was being seen at their clinic and requested for more assistance as soon as possible. Pt has been accepted for home health services at [facility]. ED SHUTTLER CAR called [facility] and spoke with Raven, discussed pt case. Per Raven, a new order would be needed for PT services (soonest to open on Wednesday, 11/16). ED SHUTTLER CAR left a message for Dr. Philip at [facility]. ED SHUTTLER CAR later recieved a call from [facility] and it was reported that they were able to coordinate a sooner open date for RN and PT on Wednesday, 11/16. No new orders needed. ED SHUTTLER CAR called pt and left a voice message with open date of Wednesday and to expect a call from [facility] for scheduling. AMY Meyer
== END 2023-11-06 17:48 | disposition home or self-care (01) ==
PROVIDERS: Emergency Provider Emergency Medicine; Family Provider Family Medicine; PCP Family Medicine
DX: S82.042A Displaced comminuted fracture of left patella, initial encounter for closed fracture (principal); S00.91XA Abrasion of unspecified part of head, initial encounter; W18.30XA Fall on same level, unspecified, initial encounter; Z23 Encounter for immunization
CPT/HCPCS: 70450; 72125; 73562; 73700; 90471; 96374; 99284; 90715; J2270

== ENCOUNTER → 2023-11-30 13:41 | Outpatient (CLI) | payer MEDICARE, OTHER, SELFPAY | PROVIDERS: Family Provider Family Medicine; PCP Family Medicine; Referring Provider Nurse Practitioner Family; Visit Provider Nurse Practitioner Family | DX: R79.89 Other specified abnormal findings of blood chemistry (principal); R30.0 Dysuria | CPT/HCPCS: 36415; 84481; 86376; 86800; 87086 ==

== ENCOUNTER → 2024-01-26 13:52 | Outpatient (CLI) | payer MEDICARE, OTHER, SELFPAY ==
[2024-01-26 16:15] LABS: Free T3, Triiodothyronine Free 3.65 pg/mL (2.77-5.27)
[2024-01-26 16:28] LABS: TSH w/ Reflex to FT4 0.57 uIU/mL (0.47-4.68)
== END ==
PROVIDERS: Family Provider Family Medicine; PCP Family Medicine; Referring Provider Family Medicine; Visit Provider Family Medicine
DX: R94.6 Abnormal results of thyroid function studies (principal)
CPT/HCPCS: 36415; 84443; 84481

== ENCOUNTER → 2024-02-03 10:11 | Outpatient (CLI) | payer MEDICARE, OTHER, SELFPAY ==
[2024-02-03 11:15] LABS: Add Manual Diff / Slide Review NO; Basophils Absolute Auto 100 /uL (0-100); Basophils Percent Auto 0.8 % (0-2); Eosinophils Absolute Auto 200 /uL (0-450); Hematocrit 38.6 % (36-46); Hemoglobin 12.8 g/dL (12.0-16.0); Lymphocytes Absolute Auto 1600 /uL (1100-4500); Lymphocytes Percent Auto 25.3 % (25-40); Mean Corpuscular HGB Conc 33.2 % (30-36); Mean Corpuscular Hemoglobin 31.9 PG (26-34); Monocytes Absolute Auto 600 /uL (0-900); Monocytes Percent Auto 10.5 % (3-14); Neutrophils Absolute Auto 3600 /uL (1500-7000); Neutrophils Percent Auto 59.4 % (50-75); Platelet Count 237 X10^3/uL (150-400); Red Blood Cell Count 4.02 X10^6/uL (4.0-5.2); Red Cell Distribution Width 15.9 % (11.6-14.8); White Blood Cell Count 6.1 X10^3/uL (4.5-11.0)
[2024-02-03 11:32] LABS: Hemoglobin A1C% w Est Avg Glu 5.8 % (4.0-6.0)
[2024-02-03 11:37] LABS: Erythrocyte Sedimentation Rate 6 MM/HR (0-20)
[2024-02-03 11:39] LABS: Alanine Aminotransferase 25 IU/L (<35); Albumin 4.4 g/dL (3.5-5.0); Albumin Globulin Ratio 1.7 (1.0-2.8); Alkaline Phosphatase 73 U/L (38-126); Aspartate Aminotransferase 33 IU/L (14-36); BUN Creatinine Ratio 20.5 (6-22); Bilirubin Total 0.5 mg/dL (0.2-1.3); Blood Urea Nitrogen 16 mg/dL (7-17); C-Reactive Protein Quant 0.5 mg/dL (<1.0); Calcium 10.2 mg/dL (8.4-10.2); Carbon Dioxide 29 mmol/L (22-32); Chloride 104 mmol/L (98-107); Estimated Glomerular Filt Rate > 60 mL/min (>60); Globulin 2.6 g/dL (1.7-4.1); Glucose 95 mg/dL (80-110); HEMOLYSIS < 15 (0-50); Sodium 140 mmol/L (137-145)
[2024-02-03 11:40] LABS: Rheumatoid Factor 9.9 IU/mL (<12.0)
[2024-02-09 14:11] LABS: ANA Screen, IFA Negative (.)
== END ==
PROVIDERS: Family Provider Family Medicine; PCP Family Medicine; Referring Provider Family Medicine; Visit Provider Family Medicine
DX: R21 Rash and other nonspecific skin eruption (principal); R73.03 Prediabetes; Z86.39 Personal history of other endocrine, nutritional and metabolic disease; L30.9 Dermatitis, unspecified; D72.819 Decreased white blood cell count, unspecified; D64.9 Anemia, unspecified
CPT/HCPCS: 36415; 80053; 83036; 85025; 85651; 86038; 86140; 86430

== ENCOUNTER → 2024-09-21 15:42 | Outpatient (CLI) | payer MEDICARE, OTHER, SELFPAY ==
--- NOTE | 2024-09-21 15:43 | DI.MG.S_ITS ---
MM screening mammo BI: 09/21/2024. BI-RADS: 1 CLINICAL: 74-year old female for bilateral screening mammogram. Tyrer-Cuzick lifetime risk of 4.5%. No personal or first-degree family history of breast cancer. Current reported family history of breast cancer: paternal aunt. The patient is status- post reduction mammoplasty. PRIOR EXAMS 09/10/2023, 09/08/2022, 09/02/2021, 08/31/2020, 08/31/2019. MAMMOGRAPHY TECHNIQUE: 2D and 3D (tomosynthesis) digital mammographic views obtained, with additional images as needed for full coverage. Current study was also evaluated with a Computer Aided Detection (CAD) system. DENSITY A. The breasts are almost entirely fatty. MAMMOGRAPHY FINDINGS Bilateral: No suspicious mass, asymmetry, microcalcification, or other abnormality seen. IMPRESSION: * No evidence of malignancy. RECOMMENDATIONS Bilateral * Annual screening mammography. OVERALL ASSESSMENT CATEGORY BI-RADS-1: Negative. [employer] recommends annual screening mammography beginning at age 40 for women with average risk of breast cancer. ELECTRONICALLY SIGNED: Humble Martinez M.D. on 09/22/2024 at 05:27:07 PM PT Interpreting Station ID: [id number]
== END ==
LOC: MAMMO 15:43
PROVIDERS: Family Provider Family Medicine; PCP Family Medicine; Referring Provider Family Medicine; Visit Provider Family Medicine
DX: Z12.31 Encounter for screening mammogram for malignant neoplasm of breast (principal); Z80.3 Family history of malignant neoplasm of breast; R92.313 Mammographic fatty tissue density, bilateral breasts
CPT/HCPCS: 77063; 77067